=== PATIENT | female | born 1970 | race Caucasian/White ===

== ENCOUNTER 2020-06-04 11:07 | Emergency (ER) | payer SELFPAY ==
[~2020-06-04] VITALS: Ht 154.9 cm; Wt 44.8 kg
--- NOTE | 2020-06-04 11:37 | PHYS DOC ---
Past History Past Medical History: Anemia, Hypertension, Other Additional Past Medical Histor: GASTRIC ULCERS Past Surgical History: Appendectomy, Cholecystectomy, , Gastric Bypass, Hip Replacement, Hysterectomy Alcohol Use: Rarely General Adult EDM: Chief Complaint: ABDOMINAL PAIN HPI: HPI: 50-year-old female presents with left upper quadrant pain. Patient had a nagging pain overnight but was able to sleep. When she woke up this morning, she had a sharp pain in the left upper quadrant. Pain is moderate in intensity. It is worse with deep breathing. It is worse with twisting her body and sitting up. Patient denies pain or any active recently as she is recovering from a shoulder problem. She denies chest pain or shortness of breath. She denies fever or chills. No reported trauma or falls. Review of Systems: Review of Systems: Constitutional: Denies fever or chills Eyes: Denies change in visual acuity HENT: Denies nasal congestion or sore throat Respiratory: Denies cough or shortness of breath Cardiovascular: Denies chest pain or edema GI: Left upper quadrant abdominal pain. Denies nausea, vomiting, bloody stools or diarrhea : Denies dysuria Musculoskeletal: Denies back pain or joint pain Integument: Denies rash Neurologic: Denies headache, focal weakness or sensory changes Endocrine: Denies polyuria or polydipsia Lymphatic: Denies swollen glands Psychiatric: Denies depression or anxiety Allergies: Allergies: Allergies Coded Allergies Type Severity Reaction Last Updated Verified ketorolac Allergy Unknown 06/04/20 Yes lisinopril Allergy Unknown 06/04/20 Yes Physical Exam: PE: Constitutional: Well developed, well nourished, no acute distress, non-toxic appearance. [] HENT: Normocephalic, atraumatic, bilateral external ears normal, oropharynx moist, no oral exudates, nose normal. [] Eyes: PERRLA, EOMI, conjunctiva normal, no discharge. [] Neck: Normal range of motion, no tenderness, supple, no stridor. [] Cardiovascular:Heart rate regular rhythm, no murmur [] Lungs & Thorax: Bilateral breath sounds clear to auscultation [] Abdomen: Bowel sounds normal, soft, mild left upper quadrant tenderness, no masses, no pulsatile masses. [] Skin: Warm, dry, no erythema, no rash. [] Back: No tenderness, no CVA tenderness. [] Extremities: No tenderness, no cyanosis, no clubbing, ROM intact, no edema. [] Neurologic: Alert and oriented X 3, normal motor function, normal sensory function, no focal deficits noted. [] Psychologic: Affect normal, judgement normal, mood normal. [] Current Patient Data: Vital Signs: Vital Signs Date Time Temp Pulse Resp B/P (MAP) Pulse Ox O2 Delivery O2 Flow Rate FiO2 06/04/20 11:23 97.9 111 18 165/97 (119) 99 Room Air EKG: EKG: [] Radiology/Procedures: Radiology/Procedures: [] Impressions: EXAM: Abdomen and pelvis CT with intravenous contrast. HISTORY: Left upper quadrant pain. TECHNIQUE: Computed tomographic images of the abdomen and pelvis were obtained following the administration of intravenous contrast. Multiplanar reformatting was performed. *One or more of the following individualized dose reduction techniques were utilized for this examination: 1. Automated exposure control. 2. Adjustment of the mA and/or kV according to patient size. 3. Use of iterative reconstruction technique. COMPARISON: 09/05/2012. FINDINGS: Evaluation of the lower thorax is unremarkable. There is intrahepatic and extra hepatic biliary ductal dilatation extending to the ankle. No obstructing lesion is seen. The gallbladder is surgically absent. There are tiny calcifications along the posterior right hepatic lobe which may be due to granulomas or prior gallstones. No suspicious hepatic lesion is seen. The pancreas is atrophic. The spleen is normal in size. There are postoperative changes involving the stomach and small bowel. The adrenal glands are unremarkable. There is no hydronephrosis. There is a small left renal parapelvic cyst or prominent upper pole calyx. There is no suspicious renal lesion. There are nonspecific fluid and stool-filled loops of bowel within the abdomen. There is no evidence of bowel obstruction. There is no acute colitis or diverticulitis. There is no lymphadenopathy. The bladder is unremarkable. There is a right hip arthroplasty resulting in metallic artifact which limits avulsion of the pelvis. There are degenerative changes involving the spine. There is no suspicious or acute osseous finding. IMPRESSION: 1. Intrahepatic and extra hepatic biliary ductal dilatation. This can be seen with reservoir effect status post cholecystectomy. MRCP may be performed if there is concern for an occult obstructing etiology. 2. Otherwise, no acute abdominal or pelvic finding. Electronically signed by: Leila Carter MD (06/04/2020 12:26 PM) [id number] DICTATED AND SIGNED BY: LEILA CARTER MD DATE: 06/04/20 1226 CC: ATA SANTILLAN DO; PCP,NO ~ EXAM: Chest, single view. HISTORY: Pain. COMPARISON: None. FINDINGS: A frontal view of the chest is obtained. There is no infiltrate, pleural effusion or pneumothorax. The heart is normal in size. There is a port catheter with the tip in the superior cavoatrial junction. There are surgical clips within the upper abdomen. IMPRESSION: No acute pulmonary finding. Electronically signed by: Leila Carter MD (06/04/2020 12:14 PM) [id number] DICTATED AND SIGNED BY: ELILA CARTER MD DATE: 06/04/20 1214 CC: ATA SANTILLAN DO; PCP,NO ~ Heart Score: Risk Factors: Risk Factors: DM, Current or recent (<one month) smoker, HTN, HLP, family histo ry of CAD, obesity. Risk Scores: Score 0 - 3: 2.5% MACE over next 6 weeks - Discharge Home Score 4 - 6: 20.3% MACE over next 6 weeks - Admit for Clinical Observation Score 7 - 10: 72.7% MACE over next 6 weeks - Early Invasive Strategies Course & Med Decision Making: Course & Med Decision Making Pertinent Labs and Imaging studies reviewed. (See chart for details) The patient has had morphine, fentanyl, and finally 1 mg of Dilaudid for discomfort. Her CT scan is essentially unremarkable. Her labs are unremarkable. I do not have an obvious source for this pain. Appears to be musculoskeletal. The patient is on narcotic pain medications for his old shoulder surgery so she is likely refractory to pain medicine. She should already have a prescription at home so I will not discharge her with any medications. She is stable for discharge at this time. [] Dragon Disclaimer: Dragon Disclaimer: This electronic medical record was generated, in whole or in part, using a voice recognition dictation system. Departure Departure: Impression: Primary Impression: Left upper quadrant abdominal pain Disposition: 01 DC HOME SELF CARE/HOMELESS Condition: STABLE Referrals: PCP,NO (PCP) Patient Instructions: Abdominal Pain, [id number] ATA SANTILLAN DO Jun 04, 2020 11:37
[2020-06-04] MEDS ORDERED: IOHEXOL 300 MG/ML 75 ML VIAL. IV ONE (11:45)
[2020-06-04] MEDS ORDERED: ONDANSETRON PF 4 MG/2 ML VIAL. IVP ONE (12:00)
[2020-06-04] MEDS ORDERED: MORPHINE SULFATE 2 MG/ML DISP.SYRIN. IV ONE (12:00)
[2020-06-04 12:06] LABS: BASO # 0.1 x10^3/uL (0.0-0.2); BASO % 1 % (0-3); EOS % 0 % (0-3); HEMATOCRIT 29.4 % (36.0-47.0); HEMOGLOBIN 9.3 g/dL (12.0-15.5); LYMPH # 1.8 x10^3/uL (1.0-4.8); LYMPH % 15 % (24-48); MEAN CORPUSCULAR HEMOGLOBIN 29 pg (25-35); MEAN CORPUSCULAR HGB CONC 32 g/dL (31-37); MEAN CORPUSCULAR VOLUME 91 fL (79-100); MONO # 0.8 x10^3/uL (0.0-1.1); MONO % 7 % (0-9); NEUT # 9.2 x10^3uL (1.8-7.7); NEUT % 77 % (31-73); PLATELET COUNT 397 x10^3/uL (140-400); RED BLOOD COUNT 3.21 x10^6/uL (3.50-5.40); RED CELL DISTRIBUTION WIDTH 15.8 % (11.5-14.5)
[2020-06-04 12:16] LABS: CREATININE 0.6 mg/dL (0.6-1.0); POTASSIUM 3.5 mmol/L (3.5-5.1)
--- NOTE | 2020-06-04 12:17 | RAD ---
EXAM: Chest, single view. HISTORY: Pain. COMPARISON: None. FINDINGS: A frontal view of the chest is obtained. There is no infiltrate, pleural effusion or pneumothorax. The heart is normal in size. There is a port catheter with the tip in the superior cavoatrial junction. There are surgical clips within the upper abdomen. IMPRESSION: No acute pulmonary finding. Electronically signed by: Leila Carter MD (06/04/2020 12:14 PM) [id number]
[2020-06-04 12:22] LABS: ALBUMIN 3.3 g/dL (3.4-5.0); TOTAL BILIRUBIN 0.2 mg/dL (0.2-1.0); TOTAL PROTEIN 6.6 g/dL (6.4-8.2)
--- NOTE | 2020-06-04 12:29 | RAD ---
EXAM: Abdomen and pelvis CT with intravenous contrast. HISTORY: Left upper quadrant pain. TECHNIQUE: Computed tomographic images of the abdomen and pelvis were obtained following the administration of intravenous contrast. Multiplanar reformatting was performed. *One or more of the following individualized dose reduction techniques were utilized for this examination: 1. Automated exposure control. 2. Adjustment of the mA and/or kV according to patient size. 3. Use of iterative reconstruction technique. COMPARISON: 09/05/2012. FINDINGS: Evaluation of the lower thorax is unremarkable. There is intrahepatic and extra hepatic biliary ductal dilatation extending to the ankle. No obstructing lesion is seen. The gallbladder is surgically absent. There are tiny calcifications along the posterior right hepatic lobe which may be due to granulomas or prior gallstones. No suspicious hepatic lesion is seen. The pancreas is atrophic. The spleen is normal in size. There are postoperative changes involving the stomach and small bowel. The adrenal glands are unremarkable. There is no hydronephrosis. There is a small left renal parapelvic cyst or prominent upper pole calyx. There is no suspicious renal lesion. There are nonspecific fluid and stool-filled loops of bowel within the abdomen. There is no evidence of bowel obstruction. There is no acute colitis or diverticulitis. There is no lymphadenopathy. The bladder is unremarkable. There is a right hip arthroplasty resulting in metallic artifact which limits avulsion of the pelvis. There are degenerative changes involving the spine. There is no suspicious or acute osseous finding. IMPRESSION: 1. Intrahepatic and extra hepatic biliary ductal dilatation. This can be seen with reservoir effect status post cholecystectomy. MRCP may be performed if there is concern for an occult obstructing etiology. 2. Otherwise, no acute abdominal or pelvic finding. Electronically signed by: Leila Carter MD (06/04/2020 12:26 PM) [id number]
[2020-06-04 12:56] VITALS: BP 162/94
[2020-06-04] MEDS ORDERED: HYDROmorphone PF 1 MG/ML DISP.SYRIN IVP ONE (14:00)
[2020-06-04] MEDS ORDERED: diphenhydrAMINE 50 MG/ML VIAL IVP ONE (14:00)
== END 2020-06-04 14:01 | disposition home or self-care (01) ==
LOC: ER 11:07
DX: R10.12 Left upper quadrant pain (principal); I10 Essential (primary) hypertension; Z86.2 Personal history of diseases of the blood and blood-forming organs and certain disorders involving the immune mechanism; Z90.89 Acquired absence of other organs; Z90.49 Acquired absence of other specified parts of digestive tract; Z98.890 Other specified postprocedural states; Z98.84 Bariatric surgery status; Z90.710 Acquired absence of both cervix and uterus; Z88.8 Allergy status to other drugs, medicaments and biological substances
CPT/HCPCS: 36415; 71045; 74177; 80053; 83690; 85025; 96374; 96375; 99285; J1170; J1200; J2270; J2405; J3010; Q9967

== ENCOUNTER 2020-07-30 22:55 | Emergency (ER) | payer MEDICARE ==
[~2020-07-30] VITALS: Ht 154.9 cm; Wt 47.4 kg
--- NOTE | 2020-07-30 23:20 | PHYS DOC ---
Past History Past Medical History: Anemia, Hypertension, P.U.D, Other Additional Past Medical Histor: GASTRIC ULCERS Past Surgical History: Appendectomy, Cholecystectomy, , Gastric Bypass, Hip Replacement, Hysterectomy Alcohol Use: Rarely Adult General Chief Complaint Chief Complaint: NAUSEA/VOMITING/[facility] HPI Patient is a 50-year-old female presenting via POV for abdominal pain. Nothing known makes better, p.o. ingestion makes worse. Patient reports generalized abdominal pain that is worse in epigastric area. Symptoms started approximately 72 hours ago without any known inciting ingestion, exposure or trauma. States she has been nauseous and has suffered x5 episodes of bloody emesis and x3 episodes of bloody looser stools than usual. She cites having history of gastric ulcers and was previously followed by [facility] gastroenterology in the past, has history of being on PPIs but has been out of these recently due to cost, has only been taking Carafate with minimal relief in symptoms. Denies known etiology of gastric ulcers, does not abuse NSAIDs, no recent travel or concerning p.o. ingestions, no alcohol dependence, no varices. Most recent upper and lower endoscopy was performed in 2013. She has never had intervention via EGD for her gastric ulcers such as cauterization, banding etc. 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 Ultimately presented this evening due to development of weakness and dizziness without syncope, fever or known COVID-19 exposure Review of Systems Review of Systems Fourteen body systems of review of systems have been reviewed. See HPI for pertinent positives and negative responses, other blanco all other systems are negative, non-pertinent or non-contributory Allergies Allergies Allergies Coded Allergies Type Severity Reaction Last Updated Verified ketorolac Allergy Unknown 06/04/20 Yes lisinopril Allergy Unknown 06/04/20 Yes Physical Exam Physical Exam Constitutional: Well developed, well nourished, no acute distress, non-toxic appearance. HENT: Normocephalic, atraumatic, bilateral external ears normal, oropharynx moist without obvious blood or other concerning abnormalities, no oral exudates, nose normal. Eyes: PERRLA, EOMI, conjunctiva normal, no discharge. Neck: Normal range of motion, no tenderness, supple, no stridor. Cardiovascular: Heart rate regular, sinus rhythm, no murmurs rubs or gallops Lungs & Thorax: Bilateral breath sounds clear to auscultation Abdomen: Bowel sounds normal, soft, generalized tenderness with voluntary guarding present, no rebound, no masses, no pulsatile masses. Nonsurgical abdomen, no peritoneal signs. Rectal exam performed, unremarkable external appearance without obvious external hemorrhoids, anal sphincter intact, no internal palpable abnormalities masses or other concerning findings Skin: Warm, dry, no erythema, no rash. Back: No tenderness, no CVA tenderness. Extremities: No tenderness, no cyanosis, no clubbing, ROM intact, no edema. Neurologic: Alert and oriented X 3, grossly normal motor & sensory function, no focal deficits noted. Psychologic: Tearful affect, judgement normal, mood normal. Current Patient Data Vital Signs Vital Signs Date Time Temp Pulse Resp B/P (MAP) Pulse Ox O2 Delivery O2 Flow Rate FiO2 07/31/20 01:28 96 Room Air 07/30/20 23:00 98.6 96 18 136/90 (105) Lab Results Laboratory Tests Test 07/30/20 23:35 07/31/20 00:10 07/31/20 01:25 Stool Occult Blood Positive (NEG) White Blood Count 10.0 x10^3/uL (4.0-11.0) Red Blood Count 2.70 x10^6/uL (3.50-5.40) Hemoglobin 6.8 g/dL (12.0-15.5) Hematocrit 22.3 % (36.0-47.0) Mean Corpuscular Volume 83 fL (79-100) Mean Corpuscular Hemoglobin 25 pg (25-35) Mean Corpuscular Hemoglobin Concent 31 g/dL (31-37) Red Cell Distribution Width 16.9 % (11.5-14.5) Platelet Count 501 x10^3/uL (140-400) Neutrophils (%) (Auto) 75 % (31-73) Lymphocytes (%) (Auto) 19 % (24-48) Monocytes (%) (Auto) 5 % (0-9) Eosinophils (%) (Auto) 1 % (0-3) Basophils (%) (Auto) 1 % (0-3) Neutrophils # (Auto) 7.5 x10^3uL (1.8-7.7) Lymphocytes # (Auto) 1.9 x10^3/uL (1.0-4.8) Monocytes # (Auto) 0.5 x10^3/uL (0.0-1.1) Eosinophils # (Auto) 0.1 x10^3/uL (0.0-0.7) Basophils # (Auto) 0.1 x10^3/uL (0.0-0.2) Sodium Level 141 mmol/L (136-145) Potassium Level 3.3 mmol/L (3.5-5.1) Chloride Level 105 mmol/L (98-107) Carbon Dioxide Level 26 mmol/L (21-32) Anion Gap 10 (6-14) Blood Urea Nitrogen 12 mg/dL (7-20) Creatinine 0.6 mg/dL (0.6-1.0) Estimated GFR (Cockcroft-Gault) 105.0 BUN/Creatinine Ratio 20 (6-20) Glucose Level 124 mg/dL (70-99) Calcium Level 8.4 mg/dL (8.5-10.1) Total Bilirubin 0.2 mg/dL (0.2-1.0) Aspartate Amino Transf (AST/SGOT) 38 U/L (15-37) Alanine Aminotransferase (ALT/SGPT) 27 U/L (14-59) Alkaline Phosphatase 173 U/L (46-116) Troponin I Quantitative < 0.017 ng/mL (0-0.055) Total Protein 5.9 g/dL (6.4-8.2) Albumin 3.1 g/dL (3.4-5.0) Albumin/Globulin Ratio 1.1 (1.0-1.7) Prothrombin Time 10.1 SEC (9.4-11.4) Prothromb Time International Ratio 1.0 (0.9-1.1) Activated Partial Thromboplast Time 22 SEC (23-33) EKG EKG EKG ordered and interpreted by myself at 00 01 hours as sinus rhythm at 89 bpm, unremarkable intervals, left axis deviation, no acute ischemic findings, no STEMI Radiology/Procedures Radiology/Procedures XR CHEST 1V 07/30/2020 11:48 PM INDICATION: Hemoptysis, chest pain COMPARISON: 06/04/2020 TECHNIQUE: Portable frontal view of the chest is provided. FINDINGS: The cardiomediastinal silhouette is within normal limits. Lungs are clear. Left chest wall infusion port catheter is in similar position. There are no significant pleural effusions. There is no pulmonary vascular congestion. No pneumothorax. No suspicious osseous abnormality. Cholecystectomy changes are present. IMPRESSION: There is no acute cardiopulmonary process. Electronically signed by: Alma Rosa Tran MD (07/31/2020 12:00 AM) [facility] Heart Score HEART Score for Chest Pain: HEART Score for Chest Pain Response (Comments) Value History Slighlty/Non-Suspicious 0 ECG Normal 0 Age >45 - < 65 1 Risk Factors 1 or 2 Risk Factors 1 Troponin < Normal Limit 0 Total 2 Risk Factors: Risk Factors: DM, Current or recent (<one month) smoker, HTN, HLP, family history of CAD, obesity. Risk Scores: Risk Factors: DM, Current or recent (<one month) smoker, HTN, HLP, family history of CAD, obesity. Course & Med Decision Making Course & Med Decision Making Pertinent Labs and Imaging studies reviewed. (See chart for details) Discussed most likely diagnosis of GI bleed with hemoglobin less than 7. Patient administered 40 mg IV Protonix and being transfused x1 unit packed red blood cells in our ER. I discussed need for transfer for GI/surgery consultation for upper and lower endoscopy No history of alcoholic cirrhosis, no indication for octreotide or coverage for SBP etc. Case initially discussed with [facility] given patient was established with third gastroenterology group, patient was admitted under the care of Dr. Skaggs but given high capacity, patient would not be transported to their facility for at least upcoming 12 hours In order to provide best care for patient, case discussed with on-call hospitalist at [facility] who ultimately agreed need for transfer and admission to their facility I updated patient on proposed plan of care, she agreed need for immediate transfer to [facility] to be seen by specialists sooner rather than waiting for hospital bed to clear at [facility]. [facility] was updated on decision to transfer to [facility] All questions and concerns addressed, patient stabilized satisfactorily prior to transfer to [facility] for further inpatient medical management Dragon Disclaimer Dragon Disclaimer This electronic medical record was generated, in whole or in part, using a voice recognition dictation system. Departure Departure: Impression: Primary Impression: GI bleed Disposition: 02 DC/TRF OTHER SHORT TERM HOS Admitting Physician: Other (dr tobin) Condition: STABLE Referrals: SRINATH ARCE (PCP) SILVIO ARANA DO Jul 30, 2020 23:20
[2020-07-31] MEDS ORDERED: MORPHINE SULFATE 4 MG/ML DISP.SYRIN. IV ONE
[2020-07-31] MEDS ORDERED: IV NORMAL SALINE 1,000ML 1,000 ML IV ONE
[2020-07-31] MEDS ORDERED: PANTOPRAZOLE IV 40 MG VIAL. IVP ONE
--- NOTE | 2020-07-31 00:03 | RAD ---
XR CHEST 1V 07/30/2020 11:48 PM INDICATION: Hemoptysis, chest pain COMPARISON: 06/04/2020 TECHNIQUE: Portable frontal view of the chest is provided. FINDINGS: The cardiomediastinal silhouette is within normal limits. Lungs are clear. Left chest wall infusion p ort catheter is in similar position. There are no significant pleural effusions. There is no pulmonary vascular congestion. No pneumothora x. No suspicious osseous abnormality. Cholecystectomy changes are present. IMPRESSION: There is no acute cardiopulmonary process. Electronically signed by: Alma Rosa Tran MD (07/31/2020 12:00 AM) [facility]
--- NOTE | 2020-07-31 00:06 | EKG ---
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
[2020-07-31 00:33] LABS: BASO # 0.1 x10^3/uL (0.0-0.2); BASO % 1 % (0-3); EOS # 0.1 x10^3/uL (0.0-0.7); EOS % 1 % (0-3); HEMATOCRIT 22.3 % (36.0-47.0); LYMPH # 1.9 x10^3/uL (1.0-4.8); LYMPH % 19 % (24-48); MEAN CORPUSCULAR HEMOGLOBIN 25 pg (25-35); MEAN CORPUSCULAR HGB CONC 31 g/dL (31-37); MEAN CORPUSCULAR VOLUME 83 fL (79-100); MONO # 0.5 x10^3/uL (0.0-1.1); MONO % 5 % (0-9); NEUT # 7.5 x10^3uL (1.8-7.7); NEUT % 75 % (31-73); PLATELET COUNT 501 x10^3/uL (140-400); RED CELL DISTRIBUTION WIDTH 16.9 % (11.5-14.5)
[2020-07-31 00:37] LABS: FECAL OB PT POSITIVE (NEG)
[2020-07-31 00:39] LABS: CALCIUM 8.4 mg/dL (8.5-10.1); CREATININE 0.6 mg/dL (0.6-1.0); POTASSIUM 3.3 mmol/L (3.5-5.1)
[2020-07-31 00:40] LABS: HEMOGLOBIN 6.8 g/dL (12.0-15.5)
[2020-07-31 00:45] LABS: ALBUMIN 3.1 g/dL (3.4-5.0); ALBUMIN/GLOBULIN RATIO 1.1 (1.0-1.7); TOTAL BILIRUBIN 0.2 mg/dL (0.2-1.0); TOTAL PROTEIN 5.9 g/dL (6.4-8.2)
[2020-07-31] MEDS ORDERED: diphenhydrAMINE HCL 25 MG CAPSULE PO PRN (01:15)
[2020-07-31] MEDS ORDERED: ACETAMINOPHEN 325 MG TABLET PO PRN (01:15)
[2020-07-31] MEDS ORDERED: HYDROmorphone PF 1 MG/ML DISP.SYRIN IVP ONE ×2 (01:15→03:45)
[2020-07-31 03:26] VITALS: BP 146/91
[2020-07-31 03:42] VITALS: BP 149/76
[2020-07-31] MEDS ORDERED: ONDANSETRON PF 4 MG/2 ML VIAL. IVP ONE ×2 (03:45)
[2020-07-31 04:22] VITALS: BP 157/99
== END 2020-07-31 04:22 | disposition short-term general hospital (02) ==
LOC: ER 22:55
DX: K92.2 Gastrointestinal hemorrhage, unspecified (principal); I10 Essential (primary) hypertension; Z87.11 Personal history of peptic ulcer disease; Z86.2 Personal history of diseases of the blood and blood-forming organs and certain disorders involving the immune mechanism; Z90.49 Acquired absence of other specified parts of digestive tract; Z98.890 Other specified postprocedural states; Z90.710 Acquired absence of both cervix and uterus; Z98.84 Bariatric surgery status; Z88.8 Allergy status to other drugs, medicaments and biological substances
CPT/HCPCS: 36415; 36430; 71045; 80053; 82274; 84484; 85025; 85610; 85730; 86850; 86900; 86901; 86920; 93005; 96374; 96375; 96376; 99291; C9113; J1170; J2270; J2405; J7030; P9016

== ENCOUNTER 2021-04-08 14:43 | Emergency (ER) | payer MEDICARE ==
[~2021-04-08] VITALS: Ht 154.9 cm; Wt 47.4 kg
[2021-04-08 15:00] VITALS: BP 157/99
[2021-04-08] MEDS ORDERED: IV NORMAL SALINE 500ML 500 ML IV SCH (16:00)
[2021-04-08] MEDS ORDERED: ONDANSETRON ODT 4 MG TAB.RAPDIS PO ONE (16:00)
--- NOTE | 2021-04-08 16:01 | PHYS DOC ---
Past History Past Medical History: Anemia, Hypertension, P.U.D, Other Additional Past Medical Histor: GASTRIC ULCERS (ISMAEL LATHAM) Past Surgical History: Appendectomy, Cholecystectomy, , Gastric Bypass, Hip Replacement, Hysterectomy (ISMAEL LATHAM) Alcohol Use: Occasionally (ISMAEL LATHAM) General Adult EDM: Chief Complaint: FATIGUE Problems: (1) Lightheadedness (2) Weakness (3) Nausea & vomiting (ISMAEL LATHAM) HPI: HPI: Patient is a 51 year old female who presents with weakness and lightheadedness since this morning. Patient states she did not sleep last night, and has had a "hard time moving around." She denies any pain, but is concerned with how weak she feels. She reports associated mild headache, nausea, vomiting, and diarrhea. However, she states that she vomits regularly due to the history of gastric bypass. Patient denies changes in vision, head trauma, loss of consciousness, recent falls, abdominal pain, blood in her stool or urine, and dysuria. Patient has no other complaints at this time. (ISMAEL LATHAM) Review of Systems: Review of Systems: Constitutional: Denies fever or chills Eyes: See HPI HENT: Denies nasal congestion or sore throat Respiratory: Denies cough or shortness of breath Cardiovascular: Denies chest pain or edema GI: See HPI : See HPI Musculoskeletal: Denies back pain or joint pain Neurologic: Denies headache, focal weakness or sensory changes Endocrine: Denies polyuria or polydipsia (ISMAEL LATHAM) Current Medications: Current Meds: Current Medications Medications (Trade) Dose Ordered Sig/Anita Start Time Stop Time Status Last Admin Dose Admin Sodium Chloride 500 ml @ 500 mls/hr Q1H 04/08/21 16:00 UNV (ISMAEL LATHAM) Allergies: Allergies: Allergies Coded Allergies Type Severity Reaction Last Updated Verified ketorolac Allergy Unknown 04/08/21 Yes lisinopril Allergy Unknown 04/08/21 Yes (ISMAEL LATHAM) Physical Exam: PE: Constitutional: Well developed, well nourished, no acute distress, non-toxic appearance. [] HENT: Normocephalic, atraumatic, bilateral external ears normal, nose normal. [] Eyes: Conjunctiva normal, no discharge. [] Neck: Normal range of motion, no tenderness, supple, no stridor. [] Cardiovascular: Heart rate regular rhythm, no murmur [] Lungs & Thorax: Bilateral breath sounds clear to auscultation [] Abdomen: Bowel sounds normal, soft, no tenderness, no masses, no pulsatile masses. [] Skin: Warm, dry, no erythema, no rash. [] Back: No tenderness, no CVA tenderness. [] Extremities: No obvious deformity, tenderness, no cyanosis, no clubbing, ROM intact, no edema. [] Neurologic: Alert and oriented X 3, strength 4/5 in extremities x4, normal sensory function, no focal deficits noted. [] (ISMAEL LATHAM) Current Patient Data: Labs: Laboratory Tests Test 04/08/21 15:35 White Blood Count 10.1 x10^3/uL (4.0-11.0) Red Blood Count 4.00 x10^6/uL (3.50-5.40) Hemoglobin 11.6 g/dL (12.0-15.5) Hematocrit 35.9 % (36.0-47.0) Mean Corpuscular Volume 90 fL (79-100) Mean Corpuscular Hemoglobin 29 pg (25-35) Mean Corpuscular Hemoglobin Concent 32 g/dL (31-37) Red Cell Distribution Width 16.1 % (11.5-14.5) Platelet Count 409 x10^3/uL (140-400) Neutrophils (%) (Auto) 74 % (31-73) Lymphocytes (%) (Auto) 20 % (24-48) Monocytes (%) (Auto) 5 % (0-9) Eosinophils (%) (Auto) 0 % (0-3) Basophils (%) (Auto) 1 % (0-3) Neutrophils # (Auto) 7.4 x10^3uL (1.8-7.7) Lymphocytes # (Auto) 2.0 x10^3/uL (1.0-4.8) Monocytes # (Auto) 0.5 x10^3/uL (0.0-1.1) Eosinophils # (Auto) 0.0 x10^3/uL (0.0-0.7) Basophils # (Auto) 0.1 x10^3/uL (0.0-0.2) Sodium Level 139 mmol/L (136-145) Potassium Level 3.1 mmol/L (3.5-5.1) Chloride Level 101 mmol/L (98-107) Carbon Dioxide Level 24 mmol/L (21-32) Anion Gap 14 (6-14) Blood Urea Nitrogen 10 mg/dL (7-20) Creatinine 0.7 mg/dL (0.6-1.0) Estimated GFR (Cockcroft-Gault) 87.5 Glucose Level 136 mg/dL (70-99) Calcium Level 8.8 mg/dL (8.5-10.1) Vital Signs: Vital Signs Date Time Temp Pulse Resp B/P (MAP) Pulse Ox O2 Delivery O2 Flow Rate FiO2 04/08/21 15:00 99.0 107 16 157/99 99 Room Air (ISMAEL LATHAM) EKG: EKG: [] (ISMAEL LATHAM) Radiology/Procedures: Radiology/Procedures: [] (ISMAEL LATHAM) Heart Score: C/O Chest Pain: N/A (ISMAEL LATHAM) Course & Med Decision Making: Course & Med Decision Making Pertinent Labs and Imaging studies reviewed. (See chart for details) On reevaluation, patient seems to be more comfortable. She states her nausea has improved, but she still feels weak. I offered her something to eat, to see if that makes her feel better as she has not eaten since early yesterday. Will reevaluate after eating. After eating, patient states she feels worse. She now has complaints of diffuse abdominal pain as well as anxiety. We will give her an anxiolytic and another 500 of fluids and effort to alleviate her complaints. She is agreeable to this plan. Patient has received fluids as well as anxiolytics in the department. Orthostatic blood pressure remains within normal limits and patient is able to ambulate. We also discussed that if she goes home eats a full meal, gets a good night's rest, and still does not feel well in the morning, that she should call her primary care provider immediately and inform them she was seen in the emergency department and schedule an appointment as soon as possible. This plan was discussed with the patient, and she is agreeable. (ISMAEL LATHAM) Dragon Disclaimer: Dragmichi Disclaimer: This electronic medical record was generated, in whole or in part, using a voice recognition dictation system. (ISMAEL LATHAM) Departure Departure: Impression: Primary Impression: Lightheadedness Disposition: 01 HOME / SELF CARE / HOMELESS Condition: STABLE Referrals: SRINATH ARCE (PCP) Patient Instructions: Weakness, [id number] Additional Instructions: Here in the emergency department, we have reviewed your labs, provided you with IV hydration, and checked your orthostatic vital signs. We have also ensure that you are able to ambulate independently. As discussed, when you return home eat whatever meal you are comfortable having and try to get a full nights rest. Call your primary care provider in the morning if you still do not feel well. Return to the emergency department if you have a syncopal episode or unable to care for yourself at home. Attending Signature Attending Signature I have participated in the care of this patient and I have reviewed and agree with all pertinent clinical information above including history, exam, and recommendations. (BLAZE POTTS MD) ISMAEL LATHAM Apr 08, 2021 16:01 BLAZE POTTS MD Apr 11, 2021 18:05
[2021-04-08 16:08] LABS: BASO # 0.1 x10^3/uL (0.0-0.2); BASO % 1 % (0-3); EOS % 0 % (0-3); HEMATOCRIT 35.9 % (36.0-47.0); HEMOGLOBIN 11.6 g/dL (12.0-15.5); LYMPH % 20 % (24-48); MEAN CORPUSCULAR HEMOGLOBIN 29 pg (25-35); MEAN CORPUSCULAR HGB CONC 32 g/dL (31-37); MEAN CORPUSCULAR VOLUME 90 fL (79-100); MONO # 0.5 x10^3/uL (0.0-1.1); MONO % 5 % (0-9); NEUT # 7.4 x10^3uL (1.8-7.7); NEUT % 74 % (31-73); PLATELET COUNT 409 x10^3/uL (140-400); RED CELL DISTRIBUTION WIDTH 16.1 % (11.5-14.5); WHITE BLOOD COUNT 10.1 x10^3/uL (4.0-11.0)
[2021-04-08 16:22] LABS: CALCIUM 8.8 mg/dL (8.5-10.1); CREATININE 0.7 mg/dL (0.6-1.0); GFR 87.5; POTASSIUM 3.1 mmol/L (3.5-5.1)
[2021-04-08] MEDS ORDERED: LORazepam 1 MG TABLET PO ONE (18:45)
[2021-04-08] MEDS ORDERED: IV NORMAL SALINE 500ML 500 ML IV ONE (18:45)
== END 2021-04-08 21:10 | disposition home or self-care (01) ==
LOC: ER 14:43
DX: R42 Dizziness and giddiness (principal); R11.2 Nausea with vomiting, unspecified; R19.7 Diarrhea, unspecified; R51.9 Headache, unspecified; I10 Essential (primary) hypertension; Z87.11 Personal history of peptic ulcer disease; Z86.2 Personal history of diseases of the blood and blood-forming organs and certain disorders involving the immune mechanism; Z90.89 Acquired absence of other organs; Z90.49 Acquired absence of other specified parts of digestive tract; Z98.890 Other specified postprocedural states; Z90.710 Acquired absence of both cervix and uterus; Z98.84 Bariatric surgery status; Z88.8 Allergy status to other drugs, medicaments and biological substances
CPT/HCPCS: 36415; 80048; 82607; 85025; 99283; J7040; Q0162

== ENCOUNTER 2021-05-03 05:30 | Observation (INO) | payer MEDICARE ==
[~2021-05-03] VITALS: Ht 154.9 cm; Wt 55.4 kg
--- NOTE | 2021-05-03 05:35 | PHYS DOC ---
Past History Past Medical History: Anemia, Hypertension, P.U.D, Other Additional Past Medical Histor: GASTRIC ULCERS (SILVIO ARANA DO) Past Surgical History: Appendectomy, Cholecystectomy, , Gastric Bypass, Hip Replacement, Hysterectomy (SILVIO ARANA DO) Alcohol Use: Occasionally (SILVIO ARANA DO) Adult General Chief Complaint Chief Complaint: OVERDOSE HPI HPI Patient is a 51-year-old female presenting via EMS for overdose. Patient has history of mental health issues such as anxiety and depression, has prior history of suicidal ideation and attempts in the past via overdose by pill ingestion. Reports she overdosed, cannot state when or quantify how many and/or what she took. States she got concerned after ingestion and called EMS early this morning for transport to our facility. On arrival, she has no complaints, states she is always in pain, just states she overdosed. States she does not want to be here anymore and that she has no will to live which is her primary reason for overdose. States she is unsure what medication she takes but per recent review of medications dispensed, it looks like she takes 50 mg [place] p.m. daily, 0.5 tablets alprazolam daily, [place] 5 4 times daily, and zolpidem 10 mg nightly. (SILVIO ARANA DO) Review of Systems Review of Systems Fourteen body systems of review of systems have been reviewed. See HPI for pertinent positives and negative responses, other blanco all other systems are negative, non-pertinent or non-contributory (SILVIO ARANA DO) Allergies Allergies Allergies Coded Allergies Type Severity Reaction Last Updated Verified ketorolac Allergy Unknown 04/08/21 Yes lisinopril Allergy Unknown 04/08/21 Yes (SILVIO ARANA DO) Physical Exam Physical Exam Constitutional: Well developed, well nourished, no acute distress, non-toxic appearance. HENT: Normocephalic, atraumatic, bilateral external ears normal, oropharynx moist, no oral exudates, nose normal. Eyes: PERRLA, EOMI, conjunctiva normal, no discharge. Neck: Normal range of motion, no tenderness, supple, no stridor. Cardiovascular: Heart rate regular, sinus rhythm, no murmurs rubs or gallops, port present on left upper outer chest Lungs & Thorax: Bilateral breath sounds clear to auscultation Abdomen: Bowel sounds normal, soft, no tenderness, no masses, no pulsatile mas ses. Nonsurgical abdomen, no peritoneal signs Skin: Warm, dry, no erythema, no rash. Back: No tenderness, no CVA tenderness. Extremities: No tenderness, no cyanosis, no clubbing, ROM intact, no edema. Neurologic: Alert and oriented X 3, cranial nerves II through XII intact, normal motor & sensory function, no focal deficits noted. Psychologic: Flat affect and mood (SILVIO ARANA DO) Current Patient Data Vital Signs Vital Signs Date Time Temp Pulse Resp B/P (MAP) Pulse Ox O2 Delivery O2 Flow Rate FiO2 05/03/21 05:59 98.2 86 125/80 (95) 99 Room Air Vital Signs Date Time Temp Pulse Resp B/P (MAP) Pulse Ox O2 Delivery O2 Flow Rate FiO2 05/03/21 05:59 98.2 86 125/80 (95) 99 Room Air (SILVIO ARANA DO) EKG EKG [] (SILVIO ARANA DO) Radiology/Procedures Radiology/Procedures [] (SILVIO ARANA DO) Heart Score C/O Chest Pain: No Risk Factors: Risk Factors: DM, Current or recent (<one month) smoker, HTN, HLP, family history of CAD, obesity. Risk Scores: Risk Factors: DM, Current or recent (<one month) smoker, HTN, HLP, family history of CAD, obesity. (SILVIO ARANA DO) Course & Med Decision Making Course & Med Decision Making ABCs unremarkable History and physical exam obtained with subsequent diagnostic work-up ordered At this time in care, my shift was ending. Comprehensive signout given to oncoming physician. Please defer to his documentation regarding future care of patient while in our ER (SILVIO ARANA DO) Course & Med Decision Making The patient's EKG is significant for a QTC of 505. I have ordered 1 g of magnesium IV. The patient's labs are significant for a hemoglobin of 9.9. Review of the chart shows this is similar to previous. Her drug screen also shows some alcohol. The patient CBC shows a potassium of 3 sodium 147. These are both similar to previous in the chart. We will observe the patient for several hours and have her evaluated by the PAT team. The PAT team has determined that the patient would benefit from psychiatric inpatient treatment. The patient is amenable to this plan. We cannot work on placement until the patient's PCR COVID-19 test comes back. This will take greater than 24 hours. I spoke with Dr. Rainey, the hospitalist and we have admitted the patient to wait for her results but also to monitor her anemia to make sure she does not need a more extended stay in the hospital. We have also given the patient potassium replacement. Repeat EKG had a QTC under 500. (ATA SANTILLAN DO) Dragon Disclaimer Dragon Disclaimer This electronic medical record was generated, in whole or in part, using a voice recognition dictation system. (SILVIO ARANA DO) Departure Departure: Impression: Primary Impression: Overdose of tricyclic antidepressants Additional Impressions: Prolonged Q-T interval on ECG Anemia Disposition: ADMITTED INPATIENT Admitting Physician: Lamine Rainey (ATA SANTILLAN DO) Condition: STABLE Referrals: SRINATH ARCE (PCP) Problem Qualifiers SILVIO ARANA DO May 03, 2021 05:35 ATA SANTILLAN DO May 03, 2021 07:55
--- NOTE | 2021-05-03 06:15 | EKG ---
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
[2021-05-03 06:19] LABS: BASO % 0 % (0-3); EOS % 1 % (0-3); HEMATOCRIT 30.9 % (36.0-47.0); HEMOGLOBIN 9.9 g/dL (12.0-15.5); LYMPH # 1.5 x10^3/uL (1.0-4.8); LYMPH % 28 % (24-48); MEAN CORPUSCULAR HEMOGLOBIN 29 pg (25-35); MEAN CORPUSCULAR HGB CONC 32 g/dL (31-37); MEAN CORPUSCULAR VOLUME 91 fL (79-100); MONO # 0.4 x10^3/uL (0.0-1.1); MONO % 8 % (0-9); NEUT # 3.4 x10^3uL (1.8-7.7); NEUT % 63 % (31-73); PLATELET COUNT 346 x10^3/uL (140-400); RED BLOOD COUNT 3.39 x10^6/uL (3.50-5.40); RED CELL DISTRIBUTION WIDTH 17.9 % (11.5-14.5); WHITE BLOOD COUNT 5.4 x10^3/uL (4.0-11.0)
[2021-05-03] MEDS ORDERED: MAGNESIUM SULFATE 1GM 100 ML IV ONE (06:30)
--- NOTE | 2021-05-03 06:30 | RAD ---
EXAM: AP View of the chest DATE: 05/03/2021 6:05 AM INDICATION: Reason: OVERDOSE / Spl. Instructions: / History: COMPARISON: 07/30/2020 06/04/2020 FINDINGS: Left port tip projects over the right atrium. The heart is not enlarged. Mediastinal and hilar contours are normal. No focal parenchymal airspace opacity. No pleural effusion or pneumothorax. IMPRESSION: 1. No radiographic evidence for acute cardiopulmonary process. Electronically signed by: Beto Castillo MD (05/03/2021 6:28 AM) ANASTACIA
[2021-05-03 06:36] LABS: BARBITURATES NEG (NEG); BENZODIAZEPINES NEG (NEG); CANNABINOIDS NEG (NEG); COCAINE NEG (NEG); METHADONE NEG (NEG); OPIATES NEG (NEG); PHENCYCLIDINE NEG (NEG)
[2021-05-03 06:49] LABS: AMPHETAMINE/METHAMPHETAMINE NEG (NEG)
[2021-05-03 06:49] LABS: CALCIUM 8.2 mg/dL (8.5-10.1); CREATININE 0.5 mg/dL (0.6-1.0); GFR 129.1
[2021-05-03 06:54] LABS: ALBUMIN 3.2 g/dL (3.4-5.0); ALBUMIN/GLOBULIN RATIO 1.2 (1.0-1.7); TOTAL BILIRUBIN 0.2 mg/dL (0.2-1.0); TOTAL PROTEIN 5.8 g/dL (6.4-8.2)
[2021-05-03 07:11] LABS: BILIRUBIN,URINE NEG (NEG); CLARITY,URINE CLEAR; COLOR,URINE YELLOW; GLUCOSE,URINE NEG (NEG)
[2021-05-03 07:12] LABS: BACTERIA,URINE 0 /HPF (0-FEW); NITRITE,URINE NEG (NEG); RBC,URINE 20-40 /HPF (0-2); SQUAMOUS EPITHELIAL CELL,UR OCC /LPF; UROBILINOGEN,URINE 0.2 mg/dL (0.2 mg/dL); WBC,URINE 0 /HPF (0-4)
[2021-05-03 07:21] LABS: ACETAMIN 2.5 mcg/mL (10-30); ETHANOL 98 mg/dL (0-10); SALIC < 2.8 mg/dL (2.8-20.0)
[2021-05-03] MEDS ORDERED: POTASSIUM CHLORIDE 20 MEQ TABLET.ER. PO ONE (09:15)
[2021-05-03] MEDS ORDERED: ONDANSETRON PF 4 MG/2 ML VIAL. IVP PRN (10:30)
[2021-05-03] MEDS ORDERED: ONDANSETRON PF 4 MG/2 ML VIAL. IVP ONE (11:00)
[2021-05-03] MEDS ORDERED: diphenhydrAMINE 50 MG/ML VIAL IVP ONE (11:00)
[2021-05-03] MEDS ORDERED: ACETAMINOPHEN 325 MG TABLET PO ONE (11:15)
[2021-05-03 12:01] VITALS: BP 154/89
[2021-05-03] MEDS ORDERED: AMLO-187 PO (13:33)
[2021-05-03] MEDS ORDERED: LAMO100T8 PO (13:33)
[2021-05-03] MEDS ORDERED: HYDR-2155 PO (13:33)
[2021-05-03] MEDS ORDERED: ALPR0.5T6 PO (13:33)
[2021-05-03] MEDS ORDERED: QUET50TA5 PO (13:33)
[2021-05-03] MEDS ORDERED: LOSA100T14 PO (13:33)
[2021-05-03] MEDS ORDERED: SERT100T PO (13:33)
[2021-05-03] MEDS ORDERED: ZOLP10TA PO (13:33)
--- NOTE | 2021-05-03 14:15 | HP ---
ADMIT DATE: 05/03/2021 ATTENDING PHYSICIAN: Dr. Rainey. CHIEF COMPLAINT: Drug overdose. HISTORY OF PRESENT ILLNESS: The patient is a 51-year-old female admitted through the ED, brought in by EMS with drug overdose. She has a longstanding history of anxiety, depression, suicidal ideation as well as attempts in the past by oral pill ingestion. She reports she overdosed, could not remember how much she took, there were empty bottles in the room for hydrocodone, Ambien, and Seroquel. Her QTc was slightly elevated. It appears she took 50 Seroquel tabs, 50 Xanax pills, along with Ambien and Media. In any event, she was stable and alert. She felt remorseful. She stated she had earlier suicidal ideation, but none at this time. The PA team has evaluated her. 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 PAST MEDICAL HISTORY: Significant for gastric ulcers, hypertension, and multiple surgeries including appendectomy, cholecystectomy, , gastric bypass, hip replacement, hysterectomy. She is in chronic pain. MEDICATIONS: As described, hydrocodone, zolpidem, Seroquel and Xanax. ALLERGIES: SHE HAS ALLERGIES TO LISINOPRIL AND KETOROLAC. EXACT REACTION IS UNCLEAR. SOCIAL HISTORY: She is a nonsmoker, nondrinker. She is disabled from chronic pain. FAMILY HISTORY: Parents are alive in their mid 70s. REVIEW OF SYSTEMS: Significant for depression, anxiety, memory issues and she really was not very helpful. She says she did not remember a lot of things, but there is a longstanding history of previous psychiatric issues with depression and suicide attempts. She has had her COVID shots. She has not been exposed. No COVID symptoms. PHYSICAL EXAMINATION: GENERAL: When I saw her, this is a pleasant, middle-aged female. VITAL SIGNS: Initial vital signs showed blood pressure 125/80, pulse is 86 and regular. She was afebrile. Oxygen saturation 99% on room air. HEENT: Head is without trauma. Pupils are reactive. Sclerae nonicteric. Oropharynx appears clear. NECK: Supple, no bruits identified. LUNGS: Clear to auscultation. CARDIOVASCULAR: Showed regular heart tones. No obvious gallops. Peripheral pulses are palpable and full. ABDOMEN: Soft. EXTREMITIES: Without edema. NEUROLOGIC FINDINGS: Flat affect, focally intact. Speech is fluent. PERTINENT LABORATORY AND X-RAY STUDIES: A 12-lead EKG initially shows slightly prolonged QTc at 500 milliseconds, hemoglobin 9.9 g/dL, white count 5400. Electrolytes within normal range. Creatinine 0.5 mg percent. Cardiac enzymes negative for coronary ischemia. Transaminases and liver panel normal. Urine tox screen was positive for ethyl alcohol at 98 and negative for everything else. Rapid coronavirus initially was negative. ASSESSMENT: 1. A 51-year-old female with drug overdose, unspecified amount. 2. Chronic pain syndrome. 3. Underlying depression and anxiety. 4. Chronic alcoholism. 5. Anemia of chronic disease. 6. Multiple surgeries in the past. PLAN: 1. Admit to the telemetry unit. 2. 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 3. for PAT team regarding inpatient care and a safe discharge plan. CANDICE/ROSE DR: Sherrie TID: [id number] CC: DEBORAH ARCE MD
[2021-05-03 15:27] VITALS: BP 149/92
[2021-05-03 19:00] VITALS: BP 146/96
--- NOTE | 2021-05-03 19:46 | EKG ---
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
--- NOTE | 2021-05-03 20:52 | DS ---
DATE OF DISCHARGE: 05/03/2021 ATTENDING PHYSICIAN: Dr. Rainey. FINAL DISCHARGE DIAGNOSES: 1. Drug overdose. 2. Suicide attempt. 3. Underlying depression with anxiety. 4. Hypertension. 5. Chronic back pain HISTORY OF PRESENT ILLNESS: The patient is a 51-year-old female with underlying depression and anxiety. She presented with drug overdose, unspecified amount of hydrocodone, Xanax, Ambien and Seroquel. She had a slightly prolonged QT interval, but it was not symptomatic. She was admitted for observation. PHYSICAL EXAMINATION: Please see the dictated note. PERTINENT LABORATORY AND X-RAY STUDIES: Urine drug screen was indeed positive for alcohol as well as benzodiazepines. COURSE IN THE HOSPITAL: The patient was fairly alert. It is unclear how much medicine she took. She was seen by the PAT team. Arrangements were then made for the patient to go to the inpatient psychiatric care as still she is suicidal. She is agreed to this and she was a voluntary transfer admitted to [facility] inpatient psychiatric treatment in [place], [place]. She was therefore transferred by secure transport to [facility]. Please refer to the recommendations by the psychiatric assessment team. She was discharged from our hospital in stable medical condition with explicit drug and followup care the inpatient psych. She will also have secure transport. MANUEL DR: Sherrie TID: [id number]
== END 2021-05-03 21:57 ==
LOC: ER 05:30 → 1 SOUTH 10:17 → INTOOBSV 10:17
PROVIDERS: ADMIT Hospitalist; ATTEND Hospitalist
DX: T43.012A Poisoning by tricyclic antidepressants, intentional self-harm, initial encounter (principal); G89.4 Chronic pain syndrome; D63.8 Anemia in other chronic diseases classified elsewhere; Z20.822 Contact with and (suspected) exposure to COVID-19; M54.9 Dorsalgia, unspecified; I10 Essential (primary) hypertension; F32.A Depression, unspecified; F10.20 Alcohol dependence, uncomplicated; F41.8 Other specified anxiety disorders; Z90.710 Acquired absence of both cervix and uterus; Z87.11 Personal history of peptic ulcer disease; Z98.84 Bariatric surgery status; Z90.49 Acquired absence of other specified parts of digestive tract; Z96.649 Presence of unspecified artificial hip joint; Z79.899 Other long term (current) drug therapy; Y92.89 Other specified places as the place of occurrence of the external cause
CPT/HCPCS: 36415; 71045; 80053; 80307; 80329; 81001; 83735; 84484; 85025; 87426; 93005; 96365; 96375; 99285; G0378; G0480; J1200; J2405; J3475; U0003; G0379

== ENCOUNTER 2021-11-29 16:23 | Emergency (ER) | payer MEDICARE, MEDICAID ==
[~2021-11-29 16:23] MED LIST: ALPR0.5T6 PO; AMLO-187 PO; HYDR-2155 PO; LAMO100T8 PO; LOSA100T14 PO; QUET50TA5 PO; SERT100T PO; ZOLP10TA PO
== END 2021-11-29 16:45 | disposition left against medical advice (07) ==
LOC: ER 16:23
DX: M79.10 Myalgia, unspecified site (principal); R50.9 Fever, unspecified; R05.9 Cough, unspecified; Z53.21 Procedure and treatment not carried out due to patient leaving prior to being seen by health care provider

== ENCOUNTER 2021-12-12 18:46 | Emergency (ER) | payer MEDICARE, MEDICAID ==
[~2021-12-12] VITALS: Ht 154.9 cm; Wt 48.0 kg
--- NOTE | 2021-12-12 18:49 | PHYS DOC ---
Past History Past Medical History: Anemia, Hypertension, P.U.D, Other Additional Past Medical Histor: GASTRIC ULCERS Past Surgical History: Gastric Bypass Alcohol Use: Rarely General Adult HPI: HPI: ".. I just tripped.. and twisted this Lt ankle and foot... banged the Rt. knee.. abrasion..." Patient is a 51 year old female who presents with above hx and complaints of slip and fall. Injury to Rt. knee and Lt. foot/ankle. Has two cm abrasion on knee. Ligaments stable. Good ROM and straight leg lift. Distal neurovascular of right leg grossly intact. Pt. Lt ankle/ foot and swollen. Localized pain to Lat. Malleolus. Pain with weightbearing. Distal neurovascular appears to be grossly intact. No other injury reported. Normally healthy. Does not remember her last tetanus shot. Review of Systems: Review of Systems: Constitutional: Denies fever or chills Eyes: Denies change in visual acuity HENT: Denies nasal congestion or sore throat Respiratory: Denies cough or shortness of breath Cardiovascular: Denies chest pain or edema GI: Denies abdominal pain, nausea, vomiting, bloody stools or diarrhea : Denies dysuria Musculoskeletal: Right knee injury and left ankle injury Integument: Denies rash Neurologic: Denies headache, focal weakness or sensory changes Endocrine: Denies polyuria or polydipsia Lymphatic: Denies swollen glands Psychiatric: Denies depression or anxiety Family History: Family History: Noncontributory presentation Current Medications: Current Meds: See nursing for for home meds Allergies: Allergies: Allergies Coded Allergies Type Severity Reaction Last Updated Verified ketorolac Allergy Unknown 04/08/21 Yes lisinopril Allergy Unknown 04/08/21 Yes Physical Exam: PE: Constitutional: Moderate distress, non-toxic appearance. [] HENT: Normocephalic, atraumatic, bilateral external ears normal, oropharynx moist, no oral exudates, nose normal. [] Eyes: PERRLA, EOMI, conjunctiva normal, no discharge. [] Neck: Normal range of motion, no tenderness, supple, no stridor. [] Cardiovascular:Heart rate regular rhythm, no murmur [] Lungs & Thorax: Bilateral breath sounds equal at apex auscultation [] Abdomen: Bowel sounds normal, soft, no tenderness, no masses, no pulsatile masses. Old surgery scars. Skin: Warm, dry, no erythema, no rash. [] Back: No tenderness, no CVA tenderness. [] Extremities: Left ankle and foot tenderness, no cyanosis, no clubbing, ROM guarded because of pain and left ankle and foot edema. Except findings per HPI. Scar Rt. and Lt shoulder, Rt hip scar. Neurologic: Alert and oriented X 3, normal motor function, normal sensory function, no focal deficits noted. [] Psychologic: Affect anxious, judgement normal, mood normal. [( Has aq Cat named shadow-14, DM, HTN and CRF) EKG: EKG: [] Radiology/Procedures: Radiology/Procedures: [][place] [id number] IMAGING REPORT Signed PATIENT: MISSY REYNOLDS ACCOUNT: [id number] : 1970 LOCATION: ER AGE: 51 SEX: F EXAM STATUS: DEP ER ORD. PHYSICIAN: BLAZE POTTS MD REASON: SPRAIN PROCEDURE: FOOT LEFT 3V EXAMINATION: XR EXAM OF ANKLE_LEFT 3V, XR FOOT_LEFT 3 VIEWS CLINICAL HISTORY: Left foot and ankle pain. Sprain TECHNIQUE: XR EXAM OF ANKLE_LEFT 3V, XR FOOT_LEFT 3 VIEWS COMPARISON: None FINDINGS/ IMPRESSION: Joint spaces and alignment maintained. No acute fracture. Tiny plantar calcaneal enthesophyte. No focal soft tissue swelling. Electronically signed by: Vitaliy Russo DO (12/12/2021 8:31 PM) [facility] DICTATED AND SIGNED BY: VITALIY RUSSO DO DATE: 12/12/212028 CC: BLAZE POTTS MD; SRINATH ARCE ~ Heart Score: C/O Chest Pain: N/A Risk Factors: Risk Factors: DM, Current or recent (<one month) smoker, HTN, HLP, family history of CAD, obesity. Risk Scores: Score 0 - 3: 2.5% MACE over next 6 weeks - Discharge Home Score 4 - 6: 20.3% MACE over next 6 weeks - Admit for Clinical Observation Score 7 - 10: 72.7% MACE over next 6 weeks - Early Invasive Strategies Course & Med Decision Making: Course & Med Decision Making Pertinent Labs and Imaging studies reviewed. (See chart for details) Ice, elevation, rest, splint, and use crutches. Nilesh-ray in 2 weeks if no improvement. Follow-up primary care. Take Tylenol for pain. Return if any concern. Apply Polysporin to right knee 4 times a day until healed. Impression; 1. Trip and fall 2. Rt knee abrasion and contusion 3. Lt. ankle and foot sprain [] Dragon Disclaimer: Lashanda Disclaimer: This electronic medical record was generated, in whole or in part, using a voice recognition dictation system. Departure Departure: Referrals: SRINATH ARCE (PCP) Lashanda Disclaimer This chart was dictated in whole or in part using Voice Recognition software in a busy, high-work load, and often noisy Emergency Department environment. It may contain unintended and wholly unrecognized errors or omissions. BLAZE POTTS MD December 12, 2021 18:49
[2021-12-12] MEDS ORDERED: BACITRACIN ZINC TOPICAL OINT PACKET. TP ONE (19:00)
[2021-12-12] MEDS ORDERED: ACETAMINOPHEN 500 MG TABLET PO ONE (19:00)
[2021-12-12] MEDS ORDERED: DIPHTH,PERTUSS(ACELL),TET TOX 0.5 ML DISP.SYRIN. VAX IM ONE ×2 (19:02→19:15)
[2021-12-12] MEDS ORDERED: NEOMY/BACITR/POLYMYXIN OINT PACKET. TP ONE ×2 (19:02→19:15)
[2021-12-12 19:50] VITALS: BP 123/78
--- NOTE | 2021-12-12 20:33 | RAD ---
EXAMINATION: XR EXAM OF ANKLE_LEFT 3V, XR FOOT_LEFT 3 VIEWS CLINICAL HISTORY: Left foot and ankle pain. Sprain TECHNIQUE: XR EXAM OF ANKLE_LEFT 3V, XR FOOT_LEFT 3 VIEWS COMPARISON: None FINDINGS/ IMPRESSION: Joint spaces and alignment maintained. No acute fracture. Tiny plantar calcaneal enthesophyte. No foc al soft tissue swelling. Electronically signed by: Vitaliy Ravi DO (12/12/2021 8:31 PM) JOELLEN
== END 2021-12-12 20:00 | disposition home or self-care (01) ==
LOC: ER 18:46
DX: S93.602A Unspecified sprain of left foot, initial encounter (principal); S93.402A Sprain of unspecified ligament of left ankle, initial encounter; S80.01XA Contusion of right knee, initial encounter; I10 Essential (primary) hypertension; Z86.2 Personal history of diseases of the blood and blood-forming organs and certain disorders involving the immune mechanism; Z87.11 Personal history of peptic ulcer disease; Z98.84 Bariatric surgery status; Z88.8 Allergy status to other drugs, medicaments and biological substances; W01.0XXA Fall on same level from slipping, tripping and stumbling without subsequent striking against object, initial encounter; Y93.89 Activity, other specified; Y92.89 Other specified places as the place of occurrence of the external cause; Y99.8 Other external cause status
CPT/HCPCS: 73610; 73630; 90471; 90715; 99284